=== PATIENT | female | born 1970 | race Caucasian/White ===

== ENCOUNTER 2021-07-17 11:00 | Outpatient (CLI) | payer OTHER ==
[2021-07-17 11:23] LABS: #Basophils 0.1 thou/uL (0.0-0.2); #Eosinphils 0.2 thou/uL (0.0-0.7); #Lymphocytes 2.5 thou/uL (1.20-3.40); #Monocytes 0.5 thou/uL (0.11-0.59); #Neutrophils 2.9 thou/uL (1.40-6.50); %Basophils 1.5 % (0.0-1.0); %Eosinophils 2.7 % (0.0-10.0); %Lymphocytes 40.1 % (21.0-51.0); %Monocytes 8.1 % (0.0-10.0); %Neutrophils 47.7 % (42.0-75.0); Hemoglobin 16.6 g/dL (12.0-16.0); Mean Corpuscular HGB CONC 33.3 g/dL (32.0-36.0); Mean Corpuscular Hemoglobin 30.9 pg (27.0-31.0); Mean Corpuscular Volume 92.8 fL (78.0-98.0); Mean Platelet Volume 8.1 fL (7.4-10.4); Platelet Count 198 thou/uL (130-400); RBC Distribution Width 11.4 % (11.5-14.5); Red Blood Cell (RBC) Count 5.37 mill/uL (4.20-5.40); White Blood Cell (WBC) Count 6.2 thou/uL (4.8-10.8)
[2021-07-17 11:38] LABS: Anion Gap 13 mmol/L (10-20); BUN (Urea Nitrogen) 9 mg/dL (9.8-20.1); Calc. Creatinine Clearance 0 mL/min (70-130); Carbon Dioxide 25 mmol/L (22-29); Chloride 106 mmol/L (98-107); Potassium 3.8 mmol/L (3.5-5.1); Sodium 140 mmol/L (136-145)
[2021-07-17 11:39] LABS: ALT (SGPT) 35 U/L (8-55); AST (SGOT) 32 U/L (5-34); Albumin 3.9 g/dL (3.5-5.0); Alkaline Phosphatase 110 U/L (40-110); Bilirubin, Total 1.2 mg/dL (0.2-1.2); Calcium 9.7 mg/dL (7.8-10.44); Cardiac Risk 4.8 (Less than 4.5); Cholesterol 176 mg/dl (< 200 Desired); Globulin 3.6 g/dL (2.4-3.5); Glucose 180 mg/dL (70-105); HDL Cholesterol 37 mg/dL (>60 Neg Risk); LDL Cholesterol, Calculated 106 mg/dL; Protein, Total 7.5 g/dL (6.0-8.3); Triglycerides 163 mg/dL (Less than 150)
[2021-07-17 17:28] LABS: Creatinine, Urine 92.88 mg/dL (47-110); Microalbumin Urine Less than 1.0 mg/dL (0.5-50.0)
[2021-07-17 17:34] LABS: Hemoglobin A1c 8.2 % (4.0-6.0)
== END 2021-07-17 11:01 | disposition home or self-care (01) ==
LOC: MADLAB 11:00
PROVIDERS: ATTEND Family Medicine
DX: E11.9 Type 2 diabetes mellitus without complications (principal); I10 Essential (primary) hypertension
CPT/HCPCS: 36415; 80053; 80061; 82043; 83036; 85025